=== PATIENT | male | born 1955 | race Caucasian/White ===

== ENCOUNTER → 2016-10-30 | Outpatient (CLI) | payer MEDICAID ==
[~2016-10-30] MED LIST: OXYC-302 PO
== END | disposition home or self-care (01) ==
LOC: PETCFH 07:30
PROVIDERS: ATTEND Thoracic Surgery (Cardiothoracic Vascular Surgery)
DX: R59.0 Localized enlarged lymph nodes (principal); R91.1 Solitary pulmonary nodule
CPT/HCPCS: 78815; A9552

== ENCOUNTER 2016-11-11 10:37 | Day surgery (SDC) | payer MEDICAID ==
[~2016-11-11] VITALS: Ht 170.2 cm; Wt 73.0 kg
[2016-11-11] MEDS ORDERED: SODIUM CHLORIDE 0.9% 1,000 ML IV SCH (11:04)
[2016-11-11 11:23] VITALS: BP 106/73
[2016-11-11] MEDS ORDERED: NONE PER PT (11:26)
[2016-11-11] MEDS ORDERED: MIDAZOLAM 1 MG/ML, 5ML ONE (12:33)
[2016-11-11] MEDS ORDERED: FENTANYL PF 100 MCG/2ML ONE (12:33)
[2016-11-11] MEDS ORDERED: NALOXONE 1 MG/ML, 2ML ONE (12:34)
[2016-11-11] MEDS ORDERED: FLUMAZENIL 0.1 MG/1 ML, 5ML ONE (12:34)
== END 2016-11-11 14:45 | disposition home or self-care (01) ==
LOC: OUT 10:37
PROVIDERS: ATTEND Thoracic Surgery (Cardiothoracic Vascular Surgery)
DX: D36.10 Benign neoplasm of peripheral nerves and autonomic nervous system, unspecified (principal); R59.0 Localized enlarged lymph nodes; Z98.890 Other specified postprocedural states; Z87.442 Personal history of urinary calculi; Z80.0 Family history of malignant neoplasm of digestive organs
CPT/HCPCS: 49180; 77012; 88305; 99156; 99157; J2250; J3010; J7030; J2310

== ENCOUNTER → 2017-06-09 | Outpatient (CLI) | payer MEDICAID ==
[~2017-06-09] MED LIST changes: +NONE PER PT; +OMNIPAQUE 350 MG/ML, 100ML BOTTLE ONE
== END | disposition home or self-care (01) ==
LOC: CFH 11:50
PROVIDERS: ATTEND Thoracic Surgery (Cardiothoracic Vascular Surgery)
DX: D36.10 Benign neoplasm of peripheral nerves and autonomic nervous system, unspecified (principal); N43.3 Hydrocele, unspecified; K76.0 Fatty (change of) liver, not elsewhere classified
CPT/HCPCS: 74177; Q9967

== ENCOUNTER → 2018-08-22 | Outpatient (CLI) | payer MEDICAID ==
[~2018-08-22] MED LIST changes: -OMNIPAQUE 350 MG/ML, 100ML BOTTLE ONE
== END | disposition home or self-care (01) ==
LOC: CFH 08:25
PROVIDERS: ATTEND Nurse Practitioner
DX: R91.1 Solitary pulmonary nodule (principal); I70.0 Atherosclerosis of aorta
CPT/HCPCS: 71250

== ENCOUNTER → 2019-09-20 | Outpatient (CLI) | payer MEDICAID | END | disposition home or self-care (01) | LOC: CFH 09:47 | PROVIDERS: ATTEND Nurse Practitioner | DX: R91.1 Solitary pulmonary nodule (principal) | CPT/HCPCS: 71250 ==